=== PATIENT | female | born 1970 | race Caucasian/White ===

== ENCOUNTER 2016-09-18 09:08 | Emergency (ER) | payer OTHER ==
[2016-09-18 09:15] VITALS: BP 108/68
--- NOTE | 2016-09-18 10:09 | UC ---
Skin Complaint HPI - HPI Summary HPI Summary: Rash on left upper side of back over scapula to shoulder - History of Current Complaint Chief Complaint: UCSkin Time Seen by Provider: 09/18/16 10:03 Stated Complaint: RASH ON HER BACK Hx Obtained From: Patient Hx Last Menstrual Period: 09/18/16 ?: No Onset/Duration: Sudden Onset, Lasting Days - 1, Still Present Skin Exposure Onset/Duration: Days Ago - 1 Timing: Constant Onset Severity: Moderate Current Severity: Moderate Pain Intensity: 5 Pain Scale Used: 0-10 Numeric Location: Discrete Character: Redness Aggravating: Nothing Alleviating: Nothing Associated Signs & Symptoms: Positive: Negative Related History: Possible Reaction to: Environmental Exposure - Allergy/Home Medications Allergies/Adverse Reactions: Allergies Allergy/AdvReac Type Severity Reaction Status Date / Time Penicillins Allergy Intermediate Hives Verified 09/18/16 09:18 Home Medications: Home Medications Escitalopram Oxalate [Lexapro 10 mg] 15 mg PO DAILY 09/18/16 [History Confirmed 09/18/16] Review of Systems Constitutional: Negative Skin: Rash - conflunent erythema, red macula, blanching Eyes: Negative ENT: Negative Respiratory: Negative Cardiovascular: Negative Gastrointestinal: Negative Genitourinary: Negative Motor: Negative Neurovascular: Negative Musculoskeletal: Negative Neurological: Negative Psychological: Negative All Other Systems Reviewed And Are Negative: Yes PMH/Surg Hx/FS Hx/Imm Hx Previously Healthy: Yes Other History Of: Negative For: HIV, Hepatitis B, Hepatitis C, Anticoagulant Therapy - Surgical History Surgical History: Yes Surgery Procedure, Year, and Place: - Family History Known Family History: Negative: Cardiac Disease, Hypertension Family History: no cardiovascular issues reported in family lineage - Social History Occupation: Employed Full-time Lives: With Family Alcohol Use: Weekly Substance Use Type: None Smoking Status (MU): Former Smoker When Did the Patient Quit Smoking/Using Tobacco: 12 years ago Physical Exam Triage Information Reviewed: Yes Appearance: Well-Appearing, No Pain Distress, Well-Nourished Vital Signs: Initial Vital Signs Temp 97.4 F 09/18/16 09:11 Pulse 71 09/18/16 09:11 Resp 18 09/18/16 09:11 BP 108/68 09/18/16 09:11 Pulse Ox 100 09/18/16 09:11 Vital Signs Reviewed: Yes Eye Exam: Normal Eyes: Positive: Conjunctiva Clear ENT Exam: Normal ENT: Positive: Normal ENT inspection, Hearing grossly normal. Negative: Nasal congestion, Nasal drainage, Trismus, Muffled/hoarse voice Dental Exam: Normal Neck exam: Normal Neck: Positive: Supple, Nontender Respiratory Exam: Normal Respiratory: Positive: Chest non-tender, No respiratory distress, No accessory muscle use Cardiovascular Exam: Normal Cardiovascular: Positive: RRR, Pulses Normal, Brisk Capillary Refill Musculoskeletal Exam: Normal Musculoskeletal: Positive: Strength Intact, ROM Intact, No Edema Neurological Exam: Normal Neurological: Positive: Alert, Muscle Tone Normal Psychological Exam: Normal Skin: Positive: rashes - confluent erythema, no drainage, no streaking, no vesicles or pustules Course/Dx - Course Course Of Treatment: Benadryl, steroid cream, mild soap and water wash follow with pcp - Differential Diagnoses - Skin Complaint Differential Diagnoses: Contact Dermatitis, Local Allergic Reaction, Varicella Zoster - Diagnoses Provider Diagnoses: Contact dermitis, unknown allergen Discharge - Discharge Plan Condition: Stable Disposition: HOME Prescriptions: Triamcinolone 0.1% CREAM(NF) [Kenalog Cream 0.1%(NF)] 1 applic TOPICAL BID #1 tube Patient Education Materials: Diphenhydramine (By mouth), Contact Dermatitis (ED ) Referrals: Roseann Welch MD [Primary Care Provider] - If Needed
== END 2016-09-18 10:19 | disposition home or self-care (01) ==
LOC: UCEAST 09:08
DX: L25.9 Unspecified contact dermatitis, unspecified cause (principal); Z87.891 Personal history of nicotine dependence
CPT/HCPCS: 99212; G0463

== ENCOUNTER 2017-07-09 14:16 | Emergency (ER) | payer OTHER ==
[2017-07-09 14:49] VITALS: BP 106/70
--- NOTE | 2017-07-09 21:31 | UC ---
Karl Zamora Nikita, scribed for Chris Giraldo MD on 07/09/17 at 1504 . Abdominal Pain Female HPI - HPI Summary HPI Summary: This patient is a 46 year old F presenting to [facility] with a chief complaint of diarrhea since yesterday at 1200. The CC is described as 8-10 episodes since onset and liquid-like. The patient rates the pain 0/10 in severity. Symptoms aggravated by nothing. Symptoms alleviated by nothing. Patient reports abdominal cramping (prior to have a stool), nausea, and weakness. Patient denies bloody, mucous diarrhea, and vomiting. Pt recently came back from [place]. - History of Current Complaint Chief Complaint: UCGI Stated Complaint: DIARRHEA FEVER Time Seen by Provider: 07/09/17 14:44 Hx Obtained From: Patient Hx Last Menstrual Period: 07/02/17 Onset/Duration: Sudden Onset, Lasting Days, Still Present Severity Currently: None Pain Intensity: 0 Pain Scale Used: 0-10 Numeric Radiates: No Character: Cramping Aggravating Factor(s): Nothing Alleviating Factor(s): Nothing Associated Signs and Symptoms: Positive: Other: - Patient reports abdominal cramping (prior to have a stool), diarrhea, nausea, and weakness. Patient denies bloody, mucous diarrhea, and vomiting. Allergies/Adverse Reactions: Allergies Allergy/AdvReac Type Severity Reaction Status Date / Time Penicillins Allergy Hives Verified 07/09/17 14:49 PMH/Surg Hx/FS Hx/Imm Hx Endocrine History: Other Other Endocrine History: No DM Cardiovascular History: Other Other Cardiovascular History: NO CAD, HTN Other History Of: Negative For: HIV, Hepatitis B, Hepatitis C, Anticoagulant Therapy - Surgical History Surgical History: Yes Surgery Procedure, Year, and Place: - Family History Known Family History: Negative: Cardiac Disease, Hypertension Family History: no cardiovascular issues reported in family lineage - Social History Alcohol Use: Occasionally Substance Use Type: None Smoking Status (MU): Former Smoker When Did the Patient Quit Smoking/Using Tobacco: 12 years ago Review of Systems Gastrointestinal: Abdominal Pain - cramping, Diarrhea - liquid, not bloody, mucous diarrhea, Nausea, Other - denies vomiting Musculoskeletal: Other: - weakness All Other Systems Reviewed And Are Negative: Yes Physical Exam - Summary Physical Exam Summary: VITAL SIGNS: Reviewed. GENERAL: ~Patient is a well-developed and nourished FEMALE who is lying comfortable in the stretcher. ~Patient is not in any acute respiratory distress. HEAD AND FACE: Normocephalic EYES: PERRLA, EOMI x 2. EARS: Hearing grossly intact. MOUTH: Oropharynx within normal limits. NECK: Supple, trachea is midline, no adenopathy, no JVD, no carotid bruit. CHEST: Symmetric, no tenderness at palpation LUNGS: Clear to auscultation bilaterally. No wheezing or crackles. CVS: Regular rate and rhythm, S1 and S2 present, no murmurs or gallops appreciated. ABDOMEN: Soft, non-tender. Bowel sounds are normal. No abdominal abnormal pulsations. EXTREMITIES: Full ROM in all major joints, no edema, no cyanosis or clubbing. NEURO: Alert and oriented x 3. No acute neurological deficits. Speech is normal and follows commands. SKIN: Dry and warm Triage Information Reviewed: Yes Vital Signs: Initial Vital Signs Temp 97.5 F 07/09/17 14:45 Pulse 59 07/09/17 14:45 Resp 12 07/09/17 14:45 BP 106/70 07/09/17 14:45 Pulse Ox 100 07/09/17 14:45 Abd Pain Female Course/Dx - Course Course Of Treatment: The patient declined a stool culture. Patient was instructed to return to the urgent care or go to ER immediately if any of the symptoms return or worsens. Plan of care was discussed with the patient, and patient understands and agrees. All questions were answered to patient satisfaction. There were no further complaints or concerns. - Differential Dx/Diagnosis Differential Diagnosis: Other - diarrhea Provider Diagnoses: diarrhea Discharge - Sign-Out/Discharge Documenting (check all that apply): Discharge - Discharge Plan Condition: Stable Disposition: HOME Prescriptions: Sulfamethox/Trimethoprim DS* [Bactrim DS 800/160 TAB*] 1 tab PO BID #20 tab Patient Education Materials: Acute Diarrhea (ED) Referrals: Roseann Welch MD [Primary Care Provider] - Additional Instructions: Take medications as instructed Increase your fluid intake Return to the UC if symptoms worsen The documentation as recorded by the Karl correa Nikita accurately reflects the service I personally performed and the decisions made by , Chris Giraldo MD.
== END 2017-07-09 15:14 | disposition home or self-care (01) ==
LOC: UCEAST 14:16
DX: R19.7 Diarrhea, unspecified (principal); Z88.0 Allergy status to penicillin; Z87.891 Personal history of nicotine dependence
CPT/HCPCS: 99212; G0463

== ENCOUNTER 2018-07-25 08:42 | Emergency (ER) | payer OTHER ==
[2018-07-25 08:53] VITALS: BP 98/63
--- NOTE | 2018-07-25 08:54 | UC ---
Skin Complaint HPI - HPI Summary HPI Summary: 47 yo female presents with LEFT 5th finger laceration. She tells me that last night she was preparing dinner and accidentally sliced his left 5th finger pad on a knife. She washed the area and applied a band-aid, but noticed it was still oozing blood this morning. She believes her tetanus is up to date. - History of Current Complaint Chief Complaint: UCLaceration Time Seen by Provider: 07/25/18 08:53 Stated Complaint: FINGER LAC Hx Obtained From: Patient Hx Last Menstrual Period: 07/18/18 Onset/Duration: Sudden Onset Onset Severity: Mild Current Severity: None Pain Intensity: 0 - Allergy/Home Medications Allergies/Adverse Reactions: Allergies Allergy/AdvReac Type Severity Reaction Status Date / Time Penicillins Allergy Hives Verified 07/09/17 14:49 PMH/Surg Hx/FS Hx/Imm Hx - Additional Past Medical History Additional PMH: None Other History Of: Negative For: HIV, Hepatitis B, Hepatitis C, Anticoagulant Therapy - Surgical History Surgical History: Yes Surgery Procedure, Year, and Place: - Family History Known Family History: Positive: None Negative: Cardiac Disease, Hypertension - Social History Occupation: Employed Full-time Lives: With Family Alcohol Use: Occasionally Substance Use Type: None Smoking Status (MU): Former Smoker When Did the Patient Quit Smoking/Using Tobacco: 12 years ago Review of Systems All Other Systems Reviewed And Are Negative: Yes Constitutional: Positive: Negative Skin: Positive: Other - Left 5th finger laceration Respiratory: Positive: Negative Cardiovascular: Positive: Negative Neurovascular: Positive: Negative Musculoskeletal: Positive: Negative Neurological: Positive: Negative Psychological: Positive: Negative Physical Exam - Summary Physical Exam Summary: GENERAL: NAD. WDWN. No pain distress. SKIN: LEFT 5th finger: finger pad with 3mm linear superficial laceration well approximated at rest. Clean. No active bleeding. CHEST: No accessory muscle use. Breathing comfortably and in no distress. CV: Pulses intact. Cap refill <2seconds NEURO: Alert. PSYCH: Age appropriate behavior. Triage Information Reviewed: Yes Vital Signs: Initial Vital Signs Temp 98 F 07/25/18 08:50 Pulse 60 07/25/18 08:50 Resp 16 07/25/18 08:50 BP 98/63 07/25/18 08:50 Pulse Ox 100 07/25/18 08:50 Vital Signs Reviewed: Yes Laceration Repair - Laceration Repair 1 Description: Linear Laceration Size After Repair: Length (cm) - 0.3 Modified For Repair: No Cleansing Completed Via Routine Prep: Yes Closure Material: Skin Adhesive Course/Dx - Course Course Of Treatment: Wound well approximated at rest. Dermabond and band-aid applied. - Diagnoses Provider Diagnosis: Laceration of left little finger Discharge - Sign-Out/Discharge Documenting (check all that apply): Patient Departure All imaging exams completed and their final reports reviewed: No Studies - Discharge Plan Condition: Stable Disposition: HOME Patient Education Materials: Skin Adhesive Care (ED) Referrals: Roseann Welch MD [Primary Care Provider] - Additional Instructions: If you develop a fever, shortness of breath, chest pain, new or worsening symptoms - please call your PCP or go to the ED. Cover the area with a band-aid until well healed - Billing Disposition and Condition Condition: STABLE Disposition: Home - Attestation Statements Provider Attestation: Per institutional requirements, I have reviewed the chart, however, I was not consulted specifically or made aware of this patient by the midlevel provider. I did not personally evaluate, interact with , or disposition this patient.
== END 2018-07-25 09:00 | disposition home or self-care (01) ==
LOC: UCEAST 08:42
DX: S61.217A Laceration without foreign body of left little finger without damage to nail, initial encounter (principal); W26.0XXA Contact with knife, initial encounter; Y93.G1 Activity, food preparation and clean up; Y92.9 Unspecified place or not applicable; Z88.0 Allergy status to penicillin; Z87.891 Personal history of nicotine dependence
CPT/HCPCS: 12001; 99211; G0463